=== PATIENT | male | born 1975 | race Caucasian/White ===

== ENCOUNTER 2018-03-17 20:54 | Emergency (ER) | payer OTHER, SELFPAY ==
[2018-03-17 20:56] VITALS: BP 128/79; PULSE 95; RESP 16; O2SAT 96; BMI 28.0
[2018-03-17 20:59] VITALS: TEMP 37
--- NOTE | 2018-03-17 21:14 | CT_ITS ---
STUDY: CT BRAIN WITHOUT CONTRAST REASON FOR EXAM: Male, 42 years old. Trauma RADIATION DOSAGE (If Supplied By Facility): CTDIvol = ( 44.99 ) mGy, DLP = ( 812.98 ) mGycm TECHNIQUE: Transaxial CT imaging of the brain was performed without administration of intravenous contrast material. Individualized dose optimization techniques were used for this CT. COMPARISON: None. FINDINGS: Normal soft tissue structures. Normal calvarium. Normal size ventricles and extra-axial spaces for the patient's age. Normal white matter tracts of the cerebral hemispheres. Normal basal ganglia and thalami. Normal brainstem. Normal cerebellum. There is no intracranial hemorrhage. There are no findings of an acute ischemic infarction. Normal visualized paranasal sinuses. CT/Brain/Head without Contrast IMPRESSION: Normal unenhanced CT scan of the brain. Electronically Signed: Zhou Howell MD at 21:48 EDT , Service support ,
--- NOTE | 2018-03-17 21:14 | RAD_ITS ---
STUDY: X-RAY - LUMBAR SPINE REASON FOR EXAM: Male, 42 years old. Trauma. TECHNIQUE: 3 view(s) of the lumbar spine were obtained. COMPARISON: None FINDINGS: Normal lumbar lordosis. There is no substantial scoliosis. There is a normal alignment of the vertebrae. Normal vertebral bodies and endplates. Normal disc space heights. There is no demonstrated fracture. The soft tissue structures are unremarkable. RAD/Lumbar Spine 2 or 3 Views IMPRESSION: Normal x-ray examination of the lumbar spine. Electronically Signed: Zhou Howell MD at 21:43 EDT , Service support ,
[2018-03-17 22:07] VITALS: BP 132/88; PULSE 79; RESP 21; O2SAT 97
[2018-03-17 23:08] VITALS: BP 105/66; PULSE 75; RESP 21; O2SAT 95
[2018-03-17 23:16] VITALS: BP 110/69; RESP 18
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
--- NOTE | 2018-03-17 23:24 | ED.DEP ---
ED Disposition - Plan for ED Patient: Disposition: Home or Assisted Living Chief Complaint: Trauma Instructions: ED Contusion Back Referrals: Eric Lora MD [NON-STAFF] - 1 Week if not improving Additional Instructions: Ice to all sore areas. Motrin and Tylenol for pain. If not improving follow-up with the assigned doctor.
[2018-03-17 23:38] VITALS: BP 107/86; PULSE 71; RESP 16; O2SAT 96
--- NOTE | 2018-03-17 23:39 | NURSING ---
called joel to take the pt home. [facility] is picking him up and taking him back to his home in [place].
== END 2018-03-17 23:39 | disposition home or self-care (01) ==
PROVIDERS: Emergency Provider Emergency Medicine
DX: S30.0XXA Contusion of lower back and pelvis, initial encounter (principal); S40.212A Abrasion of left shoulder, initial encounter; V03.00XA Pedestrian on foot injured in collision with car, pick-up truck or van in nontraffic accident, initial encounter; Y93.89 Activity, other specified; Y92.9 Unspecified place or not applicable; Z72.0 Tobacco use
CPT/HCPCS: 70450; 72100; 99285; A4216

== ENCOUNTER → 2018-07-18 10:00 | Outpatient (CLI) | payer OTHER, SELFPAY ==
--- NOTE | 2018-07-18 10:04 | RAD_ITS ---
STUDY: X-RAY - RIGHT ELBOW REASON FOR EXAM: Male, 42 years old. INCREASING RT ELBOW PAIN, NKI TECHNIQUE: 3 view(s) of the elbow. COMPARISON: None. FINDINGS: Normal visualized humerus, radius and ulna. Normal radiocapitellar and ulnotrochlear articulations. The soft tissue structures are unremarkable. RAD/Elbow min 3 Views IMPRESSION: Normal x-ray examination of the elbow. Electronically Signed: Aleksandar Alvares MD at 9:41 EDT Tel , Service support ,
== END ==
PROVIDERS: Family Provider Physician Assistant; PCP Physician Assistant; Referring Provider Orthopaedic Surgery; Visit Provider Orthopaedic Surgery
DX: M25.521 Pain in right elbow (principal)
CPT/HCPCS: 73080

== ENCOUNTER 2018-12-17 11:31 | Emergency (ER) | payer OTHER, SELFPAY ==
[2018-12-17 11:32] VITALS: BP 168/100; PULSE 107; RESP 15; TEMP 36.6; O2SAT 98; BMI 26.7
--- NOTE | 2018-12-17 11:48 | ED.RN ---
pt unable to pull toes to his nose on his rt foot, but is able to do pedal pushes.
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
--- NOTE | 2018-12-17 13:15 | CM.ED ---
SOCIAL WORK NOTE REQUESTED TO FOLLOW UP WITH [facility] AND [facility] TO INQUIRE ABOUT AFO FOR PT PER DR. ANTONIO. CALL TO [facility], THEY DO NOT SUPPLY AFO'S. CALL TO [facility], LEFT MESSAGE. FACE TO FACE WITH PT IN ROOM. INTRODUCED SELF AND REASON FOR REFERRAL. INFORMED PT THIS WORKER TO WORK ON APPOINTMENT WITH [facility]. WILL CALL PT TO UPDATE ON APPOINTMENT TIME AND DATE ONCE RECEIVED. PT VERBALIZED UNDERSTANDING. DR. ANTONIO UPDATED. PRETTY CASTILLO, SILK HANGER, APPLICATION TECHNICIAN.
[2018-12-17 14:28] VITALS: BP 141/83; PULSE 79; RESP 14; O2SAT 99
--- NOTE | 2018-12-17 15:20 | CM.ED ---
SOCIAL WORK NOTE CALL TO [employer]. APPOINTMENT SCHEDULED FOR 12/31/18 AT 1:15P. CALL TO PT TO UPDATE ON APPOINTMENT TIME AND DATE. ALL QUESTIONS ANSWERED. PRETTY CASTILLO MSW, GAS OPERATION MANAGER.
== END 2018-12-17 14:28 | disposition home or self-care (01) ==
LOC: ED 12:31
PROVIDERS: Emergency Provider Emergency Medicine; Family Provider Physician Assistant; PCP Physician Assistant
DX: G57.31 Lesion of lateral popliteal nerve, right lower limb (principal); Z72.0 Tobacco use
CPT/HCPCS: 99283

== ENCOUNTER 2021-05-06 22:56 | Emergency (ER) | payer OTHER, SELFPAY ==
[2021-05-06 22:58] VITALS: BP 147/99; PULSE 79; RESP 16; TEMP 36.1; O2SAT 98; BMI 24.5
[2021-05-06] MEDS: MethylPREDNISolone 125 MG/2 ML Vial IV (23:08)
[2021-05-06] MEDS: Famotidine 20 MG Tablet 40 MG PO (23:09)
[2021-05-06] MEDS: DiphenhydrAMINE 50 MG/ML Syringe IV (23:09)
--- NOTE | 2021-05-06 23:29 | EX.ED.DYSGE1 ---
HPI History of Present Illness Chief Complaint: Allergic Reaction Informant: patient and EMS Narrative Narrative: 45-year old male presents the emergency room with multiple bee stings. Patient states that he has had significant reactions in the past and used an EpiPen prior to EMS arrival. States he was weed eating and got multiple stings left hand right hand left arm abdomen and leg. Patient states that shortly after being stung he began to feel fluid in his throat. That is why he gave himself the epi pen. Currently the patient is feeling better. PFSH PFSH Home Medications epinephrine [EpiPen 2-Judd] 0.3 mg IM Q10M PRN #2 ea 05/06/21 [Rx Last Taken Unknown] prednisone 60 mg PO DAILY #15 tablet 05/06/21 [Rx Last Taken Unknown] Allergy/AdvReac Type Severity Reaction Status Date / Time bacitracin Allergy Rash Verified 05/06/21 22:58 [From Neosporin ([id number])] bacitracin zinc Allergy Rash Verified 05/06/21 22:58 [From Neosporin ([id number]-[id number])] bee venom protein (honey bee) Allergy Swelling Verified 05/06/21 23:01 neomycin sulfate Allergy Rash Verified 05/06/21 22:58 [From Neosporin ([id number])] polymyxin B Allergy Rash Verified 05/06/21 22:58 [From Neosporin ([id number])] Surgical History h/o wrist reconstruction Social History (Updated 05/06/21 @ 23:[address] Jan Peace DO) Smoking Status: Current every day smoker tobacco type: cigarettes substance use type: does not use ROS ROS ED Constitutional Constitutional ED: Denies chills or weight loss Eyes Eyes: Denies change in vision or diplopia ENT ENT ED: Denies ear pain, rhinorrhea or sore throat Cardiovascular Cardiovascular: Denies chest pain, orthopnea, palpitations or racing heartbeat Respiratory/Chest Respiratory/Chest: Denies cough, dyspnea or orthopnea Gastrointestinal Gastrointestinal: Denies abdominal pain, diarrhea, nausea or vomiting Genitourinary Genitourinary ED: Denies dysuria, hematuria or urinary frequency Musculoskeletal Musculoskeletal: Denies arthralgias or myalgias Integumentary Denies abscess or rash Neurologic Neurologic: Denies headache(s) or weakness Psychiatric Psychiatric: Denies anxiety, depression, suicidal ideation or suicidal thoughts Endocrine Endocrinology: Denies polydipsia, polyphagia or polyuria Allergic/Immunologic Allergic/Immunologic ED: Reports other Details: Multiple bee sting sites ; Denies mouth swelling, tongue swelling or urticaria EXAM Physical Exam Const Vital Signs: 05/06/21 22:58 Temperature 96.9 F L Temperature Source Temporal Pulse Rate 79 Respiratory Rate 16 Blood Pressure 147/99 H Blood Pressure Mean 115 Pulse Ox 98 Oxygen Delivery Method Room Air Positive well nourished and well developed General Appearance ED: well developed HEENT Reports normocephalic, head/scalp atraumatic and moist mucous membranes HEENT Narrative: Patient is handling secretions normally. Phonation is normal. No uvular or tongue swelling noted. Eyes PERRL and EOMs intact bilaterally Neck no lymphadenopathy, supple and no JVD Resp normal respiratory effort and clear to auscultation bilaterally Cardio regular rate, regular rhythm and no murmurs GI normal to inspection, nondistended, normoactive bowel sounds and non-tender Palpation: soft Back/Spine no CVA tenderness and normal ROM Extremity normal to inspection General Extremety ED: Negative for edema General Extremity: Negative for edema Neuro oriented x3 and CN's II-XII intact bilaterally Sensorium / Orientation: alert Motor Exam: strength 5/5 throughout Psych mental status grossly normal Mood & Affect: Negative for depressed or tearful Skin no wounds Skin Narrative: Patient's left and right hand are swollen and erythematous. He also has an area of swelling and erythema to the proximal left arm. There is a focal area of swelling and erythema to the anterior abdominal wall. I do not see any stingers or insect parts on the patient. MDM MDM MDM Narrative Medical decision making narrative: Patient received IV Benadryl and prednisone. He also received oral famotidine. He will be observed for the next several hours. I will write him prescription for prednisone as well as new EpiPen. Discharge Plan Triage Chief Complaint: Allergic Reaction ED Provider: Jan Peace Dx/Rx/DC Orders Clinical Impression: Local reaction to insect sting Prescriptions: New prednisone 20 MG tablet 60 mg PO DAILY Qty: 15 RF: 0 epinephrine [EpiPen 2-Judd] 0.3 mg/0.3 mL auto-injector 0.3 mg IM Q10M PRN (Reason: anaphylaxis) Qty: 2 RF: 0 Primary Care Provider: Efren Zapien Referrals: Efren Zapien, PA [Primary Care Provider] - As Needed Disposition Disposition: Home, Self Care
[2021-05-06 23:41] VITALS: BP 145/109; PULSE 65; RESP 15; O2SAT 98
[2021-05-07 00:11] VITALS: BP 140/90; PULSE 64; RESP 14; O2SAT 100
[2021-05-07 00:26] VITALS: BP 134/92; PULSE 68; RESP 15; O2SAT 100
== END 2021-05-07 00:41 | disposition home or self-care (01) ==
LOC: ED 23:39
PROVIDERS: Emergency Provider Emergency Medicine; PCP Physician Assistant
DX: T63.481A Toxic effect of venom of other arthropod, accidental (unintentional), initial encounter (principal); F17.210 Nicotine dependence, cigarettes, uncomplicated
CPT/HCPCS: 96374; 96375; 99284; A4216

== ENCOUNTER 2023-05-01 05:12 | Emergency (ER) | payer OTHER, SELFPAY ==
[2023-05-01 05:12] VITALS: BP 142/88; PULSE 75; RESP 16; TEMP 36.6; O2SAT 98; BMI 28.1
--- NOTE | 2023-05-01 05:20 | EX.ED.VIS.PS ---
HPI HPI - Psych History of Present Illness Chief Complaint: Suicidal Informant: patient Onset/Context/Timing Onset: Today Narrative Narrative: 47-year-old male who has been drinking tonight brought in by police because of suicidal threats. Apparently he has been having relationship issues, he has an ex-, then an ex-girlfriend, now is seeing another girl who ended up talking to the ex-girlfriend and everyone is mad at him, and he states he is very depressed and has been having thoughts of harming himself, [employer] police arrived to him waving a knife around threatening to kill himself with it, they were able to talk him into setting the knife down and coming cooperatively. He denies using any drugs. No recent illness or injury. [facility] Medical History (Updated 05/01/23 @ 05:[address] Boone Parnell MD) HTN (hypertension) Home Medications epinephrine 0.3 mg/0.3 mL injection, auto-injector (EpiPen 2-Judd) 0.3 mg (0.3 mL) IM Q10M PRN anaphylaxis #2 ea 05/06/21 [Rx Last Taken Unknown] prednisone 20 mg tablet 60 mg (3 x 20 mg) PO DAILY #15 TABLETS 05/06/21 [Rx Last Taken Unknown] lisinopril 10 mg tablet mg PO DAILY 05/01/23 [History Last Taken Unknown] Allergy/AdvReac Type Severity Reaction Status Date / Time bacitracin Allergy Rash Verified 05/01/23 05:19 [From Neosporin ([id number]-hebla)] bacitracin zinc Allergy Rash Verified 05/01/23 05:19 [From Neosporin ([id number]-jtg-olhxh)] bee venom protein (honey bee) Allergy Swelling Verified 05/01/23 05:19 neomycin sulfate Allergy Rash Verified 05/01/23 05:19 [From Neosporin ([id number]-[id number])] polymyxin B Allergy Rash Verified 05/01/23 05:19 [From Neosporin ([id number]-[id number]-[id number])] Surgical History (Updated 05/14/22 @ 14:33 by Zaina Brenner) h/o wrist reconstruction Social History Smoking Status: Current every day smoker tobacco type: cigarettes substance use type: does not use ROS ROS ED Constitutional Constitutional ED: Denies chills or fever(s) Eyes Eyes: Denies change in vision or diplopia ENT ENT ED: Denies rhinorrhea or sore throat Cardiovascular Cardiovascular: Denies chest pain or palpitations Respiratory/Chest Respiratory/Chest: Denies cough or dyspnea Gastrointestinal Gastrointestinal: Denies abdominal pain, diarrhea, nausea or vomiting Genitourinary Genitourinary ED: Denies dysuria or hematuria Musculoskeletal Musculoskeletal: Denies back pain or neck pain Integumentary Denies abscess or rash Neurologic Neurologic: Denies headache(s), paresthesias or weakness Psychiatric Psychiatric: Reports depression, suicidal ideation and suicidal thoughts; Denies homicidal ideation EXAM Physical Exam Const Vital Signs: 05/01/23 05:12 Temperature 97.9 F Temperature Source Temporal Pulse Rate 75 Respiratory Rate 16 Blood Pressure 142/88 H Blood Pressure Mean 106 Pulse Ox 98 Oxygen Delivery Method Room Air Positive well nourished and well developed Constitutional Narrative: Grossly intoxicated but cooperative and in no distress General Appearance ED: well developed and NAD HEENT Reports moist mucous membranes normocephalic and atraumatic Eyes PERRL and EOMs intact bilaterally General Eye ED: Negative for scleral icterus Neck no lymphadenopathy and supple Resp normal respiratory effort and clear to auscultation bilaterally Cardio no murmurs Rate: regular rate Rhythm: regular rhythm GI non-tender and non-distended Auscultation: normoactive bowel sounds Palpation: soft Back/Spine no CVA tenderness and normal ROM Extremity normal to inspection General Extremety ED: Negative for edema General Extremity: Negative for edema Neuro oriented x3, CN's II-XII intact bilaterally, no sensory deficits noted and gait normal Sensorium / Orientation: alert Motor Exam: strength 5/5 throughout Psych mental status grossly normal, thought process normal, cooperative, activity/motor behavior normal and denies homicidal ideation Mood & Affect: depressed, tearful, labile affect and other Intoxicated. Somewhat labile, but cooperative. Thought Content: suicidality Skin Lesions: no lesions Rashes: no rashes MDM MDM MDM Narrative Medical decision making narrative: Labs obtained. Patient is intoxicated. He will be observed and handed off to the next shift until he is more sober and crisis can evaluate. Will remain pink slipped with a sitter until then. He is otherwise medically cleared. Ambulatory & cooperative in the emergency department. Lab Data Attestation: I reviewed the patient's lab results. Labs: Laboratory Results - last 24 hr 05/01/23 05:15 WBC 8.5 RBC 5.14 Hgb 16.9 H Hct 50.2 MCV 97.7 H MCH 32.9 H MCHC 33.7 RDW Std Deviation 48.9 H RDW Coeff of Deepak 13.6 Plt Count 300 MPV 8.7 Immature Gran % (Auto) 0.400 Neut % (Auto) 46.3 L Lymph % (Auto) 38.7 Mccormick % (Auto) 10.3 H Eos % (Auto) 2.9 Baso % (Auto) 1.4 H Absolute Neuts (auto) 3.9 Absolute Lymphs (auto) 3.30 Nucleated RBC % 0 Sodium 134 L Potassium 3.9 Chloride 104 Carbon Dioxide 23.0 Anion Gap 7 BUN 3 L Creatinine 0.56 L Estim Creat Clear Calc 143.99 Est GFR (MDRD) Af Amer 197 Est GFR (MDRD) Non-Af 163 BUN/Creatinine Ratio 5.3 L Glucose 105 Calcium 8.5 Total Bilirubin 0.20 AST 41 H ALT 35 Alkaline Phosphatase 61 Total Protein 7.2 Albumin 3.6 Globulin 3.6 Albumin/Globulin Ratio 1.0 Urine Opiates Screen NEGATIVE Urine Methadone Screen NEGATIVE Ur Barbiturates Screen NEGATIVE Ur Phencyclidine Scrn NEGATIVE Ur Amphetamines Screen NEGATIVE MDMA (Ecstasy) Screen NEGATIVE U Benzodiazepines Scrn NEGATIVE Urine Cocaine Screen NEGATIVE U Cannabinoids Screen NEGATIVE Ur Drug Screen Comment Ethyl Alcohol 354.0 H* Discharge Plan Triage Chief Complaint: Suicidal ED Provider: Boone Parnell Dx/Rx/DC Orders Clinical Impression: Suicidal ideation, Alcohol intoxication Prescriptions: No Action prednisone 20 MG tablet 60 mg PO DAILY Qty: 15 0RF Hold Instructions: MD Ordered epinephrine [EpiPen 2-Judd] 0.3 mg/0.3 mL auto-injector 0.3 mg IM Q10M PRN (Reason: anaphylaxis) Qty: 2 0RF Rx Instructions: for 3 doses lisinopril 10 mg tablet PO DAILY Primary Care Provider: Efren Zapien Referrals: Efren Zapien PA [Primary Care Provider] -
[2023-05-01 05:32] LABS: Absolute Neutrophil Count 3.9 X10^3/uL (2.0-7.7); Basophil# 0.12 X10^3/uL; Basophil% 1.4 % (0-1); Eosinophil# 0.25 X10^3/uL; Eosinophils% 2.9 % (0-5); Hematocrit 50.2 % (40-54); Hemoglobin 16.9 g/dL (13.0-16.5); Lymphocyte % 38.7 % (19-41); Mean Corp Hgb Conc 33.7 g/dL (32-36); Mean Corpuscular Hgb 32.9 pg (27.0-32.0); Mean Corpuscular Volume 97.7 fL (80-94); Mean Platelet Vol. 8.7 fl (6.2-12.0); Monocyte# 0.88 X10^3/uL; Monocyte% 10.3 % (0-10); NRBC Flagged by Analyzer 0 % (0-5); Neutrophil # 3.94 X10^3/uL (2.7-7.7); Neutrophil % 46.3 % (47-70); Platelet Count 300 K/mm3 (150-450); RBC Distribution Width CV 13.6 % (11.6-14.6); RBC Distribution Width SD 48.9 fl (35.1-43.9); Red Blood Count 5.14 M/mm3 (4.6-6.2); White Blood Count 8.5 K/mm3 (4.4-11.0)
[2023-05-01 05:55] LABS: AST(SGOT) 41 U/L (15-37); Alanine Aminotransfer ALT/SGPT 35 U/L (16-61); Albumin, Serum 3.6 g/dL (3.2-5.0); Alkaline Phosphatase 61 U/L (45-117); Amphetamine Urine VISTA NEGATIVE (<1000 ng/mL); Anion Gap 7 (5-15); BUN 3 mg/dL (7-18); BUN/Creat Ratio 5.3 RATIO (10-20); Barbiturate Urine VISTA NEGATIVE (< 200 ng/mL); Benzodiazepine Urine VISTA NEGATIVE (< 200 ng/mL); Calcium,Total 8.5 mg/dL (8.5-10.1); Chloride 104 mmol/L (98-107); Cocaine Urine VISTA NEGATIVE (< 300 ng/mL); Creatinine, Serum 0.56 mg/dL (0.70-1.30); EST Glomerular Filtration Rate 163 mL/min (>60); Ecstacy Urine VISTA NEGATIVE (< 500 ng/mL); Est Glom Filt Rate - Afr Amer 197 mL/min (>60); Estimated Creatinine Clearance 143.99 ml/min; Globulin 3.6 g/dL (2.2-4.2); Glucose 105 mg/dL (74-106); Methadone Urine VISTA NEGATIVE (< 300 ng/mL); PCP Urine VISTA NEGATIVE (< 25 ng/mL); Potassium 3.9 mmol/L (3.5-5.1); Protein, Total 7.2 g/dL (6.4-8.2); Sodium Level 134 mmol/L (136-145); THC Urine VISTA NEGATIVE (< 50 ng/mL); Vista UDS pH Range 5
[2023-05-01] MEDS: Ibuprofen 600 MG Tablet PO (09:40)
[2023-05-01] MEDS: Lisinopril 10 MG Tablet PO (09:40)
--- NOTE | 2023-05-01 11:25 | CM.ED ---
Social Work SW consulted with MD Torres and reviewed patient's current symptoms and safety concerns. Due to patient's alcohol level, SW to evaluate once his level is closer to 100. SW updated care team of plan. Meagan Reese MILK DELIVERER, [place]ST
--- NOTE | 2023-05-01 11:30 | ED.RN ---
unable to obtain vitals at this time- pt sleeping. easily agitated when awake.
[2023-05-01 12:16] VITALS: RESP 16
--- NOTE | 2023-05-01 13:22 | ED.RN ---
PT WANTS TO LEAVE. STATES HE WILL GO WITH OR WITHOUT HIS CLOTHES. EXPLAINED HIS CLOTHES WILL NOT BE GIVEN BACK TO HIM UNTIL HE IS EVALUATED BY CRISIS OR SOCIAL WORK. PT STATES HE IS LEAVING. EXPLAINED THAT THE POLICE WILL THEN PICK HIM UP AND RETURN HIM TO THE ER. PT STATES HE NEEDS TO GO BACK TO WORK TOMORROW. EXPLAINED TO PT AGAIN THAT HIS BLOOD WILL BE DRAWN AROUND 1900 AND IF THE RESULT IS WHERE IT NEEDS TO BE CRISIS OR SOCIAL WORK WILL THEN TALK WITH HIM. PT SAT BACK IN THE BED AND WAVED THIS NURSE AWAY
[2023-05-01 13:33] VITALS: BP 123/78; PULSE 86; RESP 16; TEMP 36.3; O2SAT 95
[2023-05-01 18:52] VITALS: BP 151/93; PULSE 100; RESP 14; O2SAT 97
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
--- NOTE | 2023-05-03 18:06 | CM.ED ---
Social Work SW contacted patient to follow up regarding safety plan completed in ED. Patient recalls talking with SW and agreeable to talk via phone. Patient reports doing well and no concerns with SI. SW provided emotional support and encouraged him to return to ED or contact [facility] if symptoms resume or worsen. Patient reports understanding and reports no other needs at this time. Meagan Reese MSW, [facility]
== END 2023-05-01 20:58 | disposition home or self-care (01) ==
PROVIDERS: Emergency Medicine; Emergency Provider Emergency Medicine; PCP Physician Assistant; Visit Provider Emergency Medicine
DX: R45.851 Suicidal ideations (principal); F10.129 Alcohol abuse with intoxication, unspecified; F17.210 Nicotine dependence, cigarettes, uncomplicated
CPT/HCPCS: 36415; 80053; 80307; 82077; 85025; 87811; 99283